=== PATIENT | male | born 1970 | race Caucasian/White ===

== ENCOUNTER 2016-09-23 04:20 | Emergency (ER) | payer SELFPAY ==
--- NOTE | 2016-09-23 06:32 | ER Document Report ---
ED General - General Chief Complaint: Knee Pain Stated Complaint: RIGHT KNEE PAIN TRAVEL OUTSIDE OF THE [place] IN LAST 30 DAYS: No - HPI Patient complains to provider of: right knee pain Notes: Patient coming in for evaluation of right knee pain. Patient states swelling to the lateral sinus patella ongoing for approximately one week. Patient denies any pain denies any injury and with Ayaka upon his arrival here. Patient is wondering what the swelling is. Denies any chronic motions are work on his knees denies any new physical activity. - Related Data Allergies/Adverse Reactions: Penicillins Allergy (Verified 09/23/16 04:47) Home Medications: Current Home Medications Ibuprofen [Ibuprofen] 1 tab PO Q8HP PRN 09/23/16 [History] Lisinopril/Hydrochlorothiazide [Lisinopril-Hctz 20-12.5 mg Tab] 1 tab PO DAILY 09/23/16 [History] Past Medical History - Social History Smoking Status: Never Smoker Chew tobacco use (# tins/day): Yes Frequency of alcohol use: None Drug Abuse: None Family History: Reviewed & Not Pertinent Patient has suicidal ideation: No Patient has homicidal ideation: No - Past Medical History Cardiac Medical History: Reports: Hx Hypertension Renal/ Medical History: Denies: Hx Peritoneal Dialysis Psychiatric Medical History: Reports: Hx Depression Surgical Hx: Negative - Immunizations Hx Diphtheria, Pertussis, Tetanus Vaccination: No Review of Systems - Review of Systems Constitutional: No symptoms reported EENT: No symptoms reported Cardiovascular: No symptoms reported Respiratory: No symptoms reported Gastrointestinal: No symptoms reported Genitourinary: No symptoms reported Male Genitourinary: No symptoms reported Musculoskeletal: Other - Knee pain Skin: No symptoms reported Hematologic/Lymphatic: No symptoms reported Neurological/Psychological: No symptoms reported Physical Exam - Vital signs Vitals: Temp Pulse Resp BP Pulse Ox 98.3 F 112 H 20 143/85 H 96 09/23/16 04:47 09/23/16 04:47 09/23/16 04:47 09/23/16 04:47 09/23/16 04:47 Interpretation: Normal - General General appearance: Appears well, Alert - HEENT Head: Normocephalic, Atraumatic Eyes: Normal Pupils: PERRL - Respiratory Respiratory status: No respiratory distress Chest status: Nontender Breath sounds: Normal Chest palpation: Normal - Cardiovascular Rhythm: Regular Heart sounds: Normal auscultation Murmur: No - Abdominal Inspection: Normal Distension: No distension Bowel sounds: Normal Tenderness: Nontender Organomegaly: No organomegaly - Back Back: Normal, Nontender - Extremities General upper extremity: Normal inspection, Nontender, Normal color, Normal ROM , Normal temperature General lower extremity: Normal inspection, Nontender, Normal color, Normal ROM , Normal temperature, Normal weight bearing, Other - Patient with area of swelling distal femur to the lateral side of the patella.. No: Sonny's sign - Neurological Neuro grossly intact: Yes Cognition: Normal Orientation: AAOx4 Easley Coma Scale Eye Opening: Spontaneous Easley Coma Scale Verbal: Oriented Erum Coma Scale Motor: Obeys Commands Erum Coma Scale Total: 15 Speech: Normal Motor strength normal: LUE, RUE, LLE, RLE Sensory: Normal - Psychological Associated symptoms: Normal affect, Normal mood - Skin Skin Temperature: Warm Skin Moisture: Dry Skin Color: Normal Course - Re-evaluation Re-evalutation: 09/23/16 09:01 Possible early bursitis. No critical etiology seen on patient's examination is signs of infection no deformity. Patient with discharged home follow-up with his doctor or orthopedics. - Vital Signs Vital signs: Temp Pulse Resp BP Pulse Ox 98.3 F 110 H 16 145/82 H 96 09/23/16 06:40 09/23/16 06:40 09/23/16 06:40 09/23/16 06:40 09/23/16 06:40 Discharge - Discharge Clinical Impression: Bursitis Condition: Good Disposition: HOME, SELF-CARE Instructions: Ice & Elevation ([facility]), Bursitis ([facility]) Additional Instructions: Your symptoms are consistent with bursitis. Please change the anti- inflammatory medication. Avoid any trauma to the leg. I would recommend following up with orthopedic doctor or primary care physician for further evaluation.
[2016-09-23 06:42] VITALS: BP 145/82
== END 2016-09-23 06:41 | disposition home or self-care (01) ==
LOC: ER 04:20
DX: M71.9 Bursopathy, unspecified (principal); M25.561 Pain in right knee; I10 Essential (primary) hypertension; Z88.0 Allergy status to penicillin
CPT/HCPCS: 99283

== ENCOUNTER 2018-06-17 12:33 | Emergency (ER) | payer SELFPAY ==
--- NOTE | 2018-06-17 14:00 | ER Document Report ---
ED Medical Screen (RME) - General Chief Complaint: Knee Pain Stated Complaint: LEFT KNEE PAIN Time Seen by Provider: 06/17/18 13:15 Notes: Patient with a history of bilateral knee pain. States that he normally sees orthopedics and gets the knees drained on occasion with a shot of cortisone but they could not see him for several days. The left knee is too painful to stand. Wants to have the left knee potentially drained. I have greeted and performed a rapid initial assessment of this patient. A comprehensive ED assessment and evaluation of the patient, analysis of test results and completion of the medical decision making process will be conducted by additional ED providers. TRAVEL OUTSIDE OF THE [place] IN LAST 30 DAYS: No - Related Data Allergies/Adverse Reactions: Penicillins Allergy (Verified 09/23/16 04:47) Past Medical History - Past Medical History Cardiac Medical History: Reports: Hx Hypertension Renal/ Medical History: Denies: Hx Peritoneal Dialysis Psychiatric Medical History: Reports: Hx Depression - Immunizations Hx Diphtheria, Pertussis, Tetanus Vaccination: No Physical Exam - Vital signs Vitals: Temp Pulse Resp BP Pulse Ox 99.1 F 76 20 148/91 H 96 06/17/18 12:40 06/17/18 12:40 06/17/18 12:40 06/17/18 12:40 06/17/18 12:40 Course - Vital Signs Vital signs: Temp Pulse Resp BP Pulse Ox 99.1 F 76 20 148/91 H 96 06/17/18 12:40 06/17/18 12:40 06/17/18 12:40 06/17/18 12:40 06/17/18 12:40
--- NOTE | 2018-06-17 14:52 | ER Document Report ---
HPI - HPI Patient complains to provider of: left knee pain Time Seen by Provider: 06/17/18 13:15 Pain Level: 5 Context: Pt presents to the ED with complaints of bilateral knee pain x 1 month. States today his left knee is bothering him the most. Pt states he typically goes to his orthopedist who does aspirations of his knee joint and then injected him with a steroid. Pt claims no injury to the left knee. Pt has swelling but his knee is absent of any bruising or erythema. Pt. denies fever. PMH: HTN Meds: lisinopril Allergies: PCN Past Medical History - General Information source: Patient - Social History Smoking Status: Never Smoker Lives with: Alone Family History: Reviewed & Not Pertinent Patient has suicidal ideation: No Patient has homicidal ideation: No - Past Medical History Cardiac Medical History: Reports: Hx Hypertension Renal/ Medical History: Denies: Hx Peritoneal Dialysis Psychiatric Medical History: Reports: Hx Depression - Immunizations Hx Diphtheria, Pertussis, Tetanus Vaccination: No Vertical Provider Document - CONSTITUTIONAL Agree With Documented VS: Yes Notes: GENERAL: Alert, interacts well. No acute distress. Patient walking with a cane HEAD: Normocephalic, atraumatic. EYES: Pupils equal, round, and reactive to light. Extraocular movements intact. ENT: Oral mucosa moist, tongue midline. NECK: Full range of motion. Supple. Trachea midline. LUNGS: Clear to auscultation bilaterally, no wheezes, rales, or rhonchi. No respiratory distress. HEART: Regular rate and rhythm. No murmur ABDOMEN: Soft, non-tender. Non-distended. Bowel sounds present in all 4 quadrants. EXTREMITIES: Moves all 4 extremities spontaneously. normal radial and dorsalis pedis pulses bilaterally. No cyanosis. Swelling noted in the left knee, no erythema or ecchymosis noted. BACK: no cervical, thoracic, lumbar midline tenderness. No saddle anesthesia, normal distal neurovascular exam. NEUROLOGICAL: Alert and oriented x3. Normal speech. cranial nerves II through XII grossly intact. PSYCH: Normal affect, normal mood. SKIN: Warm, dry, normal turgor. - INFECTION CONTROL TRAVEL OUTSIDE OF THE [place] IN LAST 30 DAYS: No Course - Re-evaluation Re-evalutation: See provider note placed by Dr. Kristopher Georges. Discussed with patient need to follow-up with orthopedics, her primary care provider. Discussed returning to the emergency room for any other concerning symptoms. Patient does state that left knee feels better after procedure. Enrique wrap applied by nursing staff. Vitals reviewed, nursing notes reviewed. - Vital Signs Vital signs: Temp Pulse Resp BP Pulse Ox 99.1 F 76 20 148/91 H 96 06/17/18 12:40 06/17/18 12:40 06/17/18 12:40 06/17/18 12:40 06/17/18 12:40 Discharge - Discharge Clinical Impression: Knee pain Qualifiers: Chronicity: chronic Laterality: left Qualified Code(s): M25.562 - Pain in left knee Condition: Stable Disposition: HOME, SELF-CARE Instructions: Ice & Elevation ([facility]), Knee Effusion ([facility]) Additional Instructions: As we discussed you have been seen and treated in the emergency room for a knee effusion. You should follow-up with the orthopedic as soon as possible. Please return to the emergency room for any other concerning symptoms.
--- NOTE | 2018-06-17 15:06 | RADIOLOGY REPORT (SQ) ---
EXAM DESCRIPTION: KNEE LEFT 2 VIEWS COMPLETED DATE/TIME: 06/17/2018 2:55 pm REASON FOR STUDY: knee pain and swelling no known injury, pain for months COMPARISON: None. NUMBER OF VIEWS: Two views. TECHNIQUE: AP and lateral radiographic images acquired of the left knee. LIMITATIONS: None. FINDINGS: MINERALIZATION: Normal. BONES: No acute fracture or dislocation. No worrisome bone lesions. JOINT: Small suprapatellar knee joint effusion. There is mild medial and lateral compartment joint s pace narrowing without osteophyte SOFT TISSUES: Popliteal fossa 2.6 cm lymph node seen on lateral view. No radiopaque foreign body or soft tissue gas OTHER: No other significant finding. IMPRESSION: Knee joint effusion Mild medial and lateral compartment joint space narrowing without bony spurring Popliteal fossa lymph node TECHNICAL DOCUMENTATION: JOB ID: [id number] [employer]- All Rights Reserved Reading location - IP/workstation name: [email or web address]
[2018-06-17] MEDS ORDERED: TRIAMCINOLONE ACETONIDE INJ 40 MG/1 ML VIAL INJ ONE (15:32)
[2018-06-17] MEDS ORDERED: LIDOCAINE 1.5% INJ-MPF (15 MG/ML) 20 ML AMPUL INJ ONE (15:42)
[2018-06-17] MEDS ORDERED: LIDOCAINE 1% INJ-PF (10 MG/ML) 30 ML SDV ONE (15:44)
[2018-06-17 16:15] VITALS: BP 136/80
--- NOTE | 2018-06-17 19:48 | ER Document Report ---
Doctor's Note Notes: 06/17/18 19:47 Patient was initially seen at triage. It was consulted by the physician's metal moulder's assistant for help with potential arthrocentesis. The patient was consented. Verbal consent obtained. The risks and benefits of the procedure were explained to the patient. The lateral left knee was cleaned and prepped with Betadine. Approximately 10 cc of lidocaine was injected into the knee. A large 18-gauge needle was used to attempt to aspirate effusion. This was unsuccessful. The needle was repositioned and tried in a different spot and no joint fluid was aspirated either. At that time a 40 mg dose of Kenalog was applied into the knee joint. Patient tolerated procedure well. No complications. Course - Vital Signs Vital signs: Temp Pulse Resp BP Pulse Ox 99.5 F 95 20 136/80 H 96 06/17/18 16:13 06/17/18 16:39 06/17/18 16:13 06/17/18 16:13 06/17/18 16:13
== END 2018-06-17 16:40 | disposition home or self-care (01) ==
LOC: ER 12:33
DX: M25.562 Pain in left knee (principal); G89.29 Other chronic pain; M25.561 Pain in right knee; M25.462 Effusion, left knee; I10 Essential (primary) hypertension; Z79.899 Other long term (current) drug therapy; Z88.0 Allergy status to penicillin
CPT/HCPCS: 99283; 73560; 20610; J3490 ×2